=== PATIENT | female | born 1955 | race Caucasian/White ===

== ENCOUNTER 2021-10-24 15:28 | Emergency (ER) | payer MEDICARE, SELFPAY ==
[2021-10-24 15:39] VITALS: BP 127/69; PULSE 75; RESP 16; TEMP 36.9; O2SAT 98
--- NOTE | 2021-10-24 15:40 | ED.EAR ---
HPI - Ear Problem General Chief complaint: Ear Stated complaint: Ear Pain Time Seen by Provider: 10/24/21 15:52 Source: patient and RN notes reviewed Mode of arrival: ambulatory Limitations: no limitations History of Present Illness HPI Narrative: 66-year-old female presents concern for left ear pain. Reports last night she had pain, loud noise in her ear and then decreased hearing. She reports moisture coming out of the ear. She denies any upper respiratory symptoms, fever, body aches, chills. MD Complaint: ear pain and foreign body Related Data Home Medications Medication Instructions Recorded Confirmed amitriptyline 50 mg tablet 50 mg PO HS 10/24/21 10/24/21 atenolol 25 mg tablet 25 mg PO DAILY 10/24/21 10/24/21 atorvastatin 40 mg tablet 40 mg PO DAILY 10/24/21 10/24/21 citalopram 40 mg tablet 40 mg PO DAILY 10/24/21 10/24/21 gabapentin 100 mg capsule 100 mg PO DAILY 10/24/21 10/24/21 meloxicam 7.5 mg tablet 7.5 mg PO DAILY 10/24/21 10/24/21 Allergies Allergy/AdvReac Type Severity Reaction Status Date / Time codeine AdvReac Nausea and Verified 10/24/21 15:49 Vomiting Review of Systems Review of Systems: CONSTITUTIONAL: Denies malaise, chills, sweats, or fever. EYES: Denies visual changes, redness, or discharge. ENT: Denies rhinorrhea, congestion, sinus pain, and sore throat. Reports left ear pain and decreased hearing CARDIOVASCULAR: Denies chest pain, palpitations, or edema. RESPIRATORY: Denies cough. Denies dyspnea. GASTROINTESTINAL: Denies abdominal pain, nausea, vomiting, diarrhea SKIN: Denies rash or itching. MUSCULOSKELETAL: Denies myalgia. NEUROLOGIC: Denies headache. All systems reviewed & are unremarkable except as noted in HPI and below PMFSH Comments At time of signature, agree with nursing past medical, surgical, social and family history. There is no relevant family history pertinent to the presenting complaint Exam Narrative: GENERAL: Well-appearing, well-nourished, and in no acute distress. HEAD: Normocephalic EYES: PERRLA, conjunctivae clear ENT: Nares clear. Right TM pearly ace with sharp light reflex, left TM not visible due to possible foreign body or excess cerumen CHEST: No respiratory distress, speaks in full sentences. HEART: Regular rate and rhythm. No murmur heard. SKIN: Warm, dry, no rash. NEURO: Alert and oriented x3. PSYCH: Normal mood and affect Course Course Emergency Course: Patient is aware of diagnosis, understands and agrees to treatment plan. Anticipatory guidance given. Patient agrees to follow-up as directed and is aware of reasons to seek care at the emergency department. Portions of this record may have been created with voice recognition software Level of Care: Express Care Visit Vital Signs Vital signs: Reviewed. Procedures FB Removal Ear Foreign Body #1: Foreign Body Removal Date: 10/24/21 Foreign Body Removal Time: 16:00 Foreign Body Suspected: organic matter TM intact pre-procedure: unable to visualize Foreign Body Removed: partial removal Foreign Body Removal Technique: instrumentation (and irrigation) Tympanic Membrane Intact Post Procedure: Yes Patient Tolerated Procedure: other (pain) Complications: pain Additional Comments: Procedure aborted due to bleeding. Ear canal was instilled with hydrogen peroxide, irrigated with 1: 1 hydrogen peroxide and water. Small solid round matter removed from the ear. Still able to visualize matter in the ear, not clear what it is. Alligator forceps used to grab matter, small sticky substance removed, however at this time there was bleeding in the EAC noted. Advised patient that we will stop the procedure, antibiotics prescribed, follow-up instructions given. Medical Decision Making MDM Narrative Medical decision making narrative: Differential diagnosis considered: Piper virus, strep pharyngitis, allergic rhinitis, upper respiratory tract inf
== END 2021-10-24 16:30 | disposition home or self-care (01) ==
PROVIDERS: Emergency Provider Nurse Practitioner; PCP Internal Medicine
DX: H92.02 Otalgia, left ear (principal); T16.2XXA Foreign body in left ear, initial encounter; X58.XXXA Exposure to other specified factors, initial encounter; G62.9 Polyneuropathy, unspecified; M32.9 Systemic lupus erythematosus, unspecified; F32.A Depression, unspecified
CPT/HCPCS: 69200; 99213; G0463